=== PATIENT | female | born 1955 | race Caucasian/White ===

== ENCOUNTER 2016-06-28 12:00 | Emergency (ER) | payer OTHER ==
[2016-06-28 12:09] VITALS: BMI 36.6
--- NOTE | 2016-06-28 13:56 | PDOC ---
History of Present Illness - History of Present Illness Initial Comments: 06/28/16 14:24 The patient is a 61 year old female with a past medical hx of hypertension who presents to the ED complaining of right lower back pain radiating down her right leg for three days. She states the pain is also radiating to the suprapubic region. The patient states the pain has progressively gotten worse and describes the pain as hard. She states she has a hx of back pain and has gone to the ED in the past for the same symptoms. She denies any heavy lifting, trauma, or falls. The patient is also complaining of a wound to her left leg that she reports has been worsening. She states she has the wound as a result of her foot rubbing against her socks. The patient denies dysuria, hematuria The patient denies fever, chills The patient denies nausea, vomiting, diarrhea Allergies: NKDA Social: No toxic habits reported Surgical: None reported PCP: N/A <Mahi Talavera - Last Filed: 06/28/16 16:42> - General History Source: Patient Exam Limitations: No Limitations <Jaylene Allison - Last Filed: 06/28/16 16:53> <Pantera Olvera - Last Filed: 06/28/16 18:14> - General Chief Complaint: Wound Stated Complaint: LOWER BACK PAIN, LT ANKLE INJURY Time Seen by Provider: 06/28/16 13:48 Past History <Mahi Talavera - Last Filed: 06/28/16 16:42> - Past Medical History HTN: Yes Hypercholesterolemia: Yes - Immunization History Td Vaccination: No Immunization Up to Date: No - Psycho/Social/Smoking Cessation Hx Anxiety: No Suicidal Ideation: No Smoking Status: No Smoking History: Never smoked Number of Cigarettes Smoked Daily: 0 Hx Alcohol Use: No Drug/Substance Use Hx: No Substance Use Type: None <Jaylene Allison - Last Filed: 06/28/16 16:53> <Pantera Olvera - Last Filed: 06/28/16 18:14> - Past Medical History Allergies/Adverse Reactions: Allergies Allergy/AdvReac Type Severity Reaction Status Date / Time No Known Allergies Allergy Verified 06/28/16 14:52 Home Medications: Ambulatory Orders Aspirin [Baby Aspirin] 81 mg PO DAILY 10/10/11 Hydrochlorothiazide [Hctz -] 50 mg PO DAILY 05/10/14 Cyclobenzaprine HCl [Flexeril -] 10 mg PO TID #21 tablet 08/22/15 Cephalexin [Keflex] 500 mg PO Q6H #28 capsule 06/28/16 Ibuprofen [Motrin -] 600 mg PO TID PRN #21 tablet 06/28/16 Methocarbamol [Robaxin -] 500 mg PO TID PRN #21 tablet 06/28/16 Oxycodone HCl/Acetaminophen [Percocet 5-325 mg Tablet] 1 tab PO Q6H PRN #12 tablet MDD 4 06/28/16 Review of Systems - Review of Systems Able to Perform ROS?: Yes Comments:: 06/28/16 14:24 GENERAL/CONSTITUTIONAL: No: fever, chills, weakness, loss of appetite. HEAD, EYES, EARS, NOSE AND THROAT: No: change in vision, ear pain, discharge, sore throat, throat swelling. CARDIOVASCULAR: No: chest pain, lightheadedness, palpitations, syncope RESPIRATORY: No: cough, shortness of breath, wheezing, hemoptysis, stridor. GASTROINTESTINAL: No: nausea, vomiting, abdominal cramping, diarrhea, rectal bleeding, constipation. GENITOURINARY: No: dysuria, hematuria, frequency, urgency, flank pain. MUSCULOSKELETAL: +Lower back pain radiating into right leg and suprapubic region. SKIN: No: +Left foot wound. No: lesions. NEUROLOGIC: No: headache, vertigo, paresthesias, weakness ENDOCRINE: No: unexplained weight gain or loss HEMATOLOGIC/LYMPHATIC: No: anemia, easy bleeding, swelling nodes <Mahi Talavera - Last Filed: 06/28/16 16:42> *Physical Exam - Vital Signs Last Vital Signs Temp Pulse Resp BP Pulse Ox 98.1 F 80 20 137/79 98 06/28/16 12:05 06/28/16 12:05 06/28/16 12:05 06/28/16 12:05 06/28/16 12:05 - Physical Exam Comments: 06/28/16 14:28 GENERAL: The patient is in no acute distress. HEAD: Normal with no signs of trauma. EYES: PERRLA, EOMI, sclera anicteric, conjunctiva clear. ENT: Ears normal, nares patent, oropharynx clear without exudates. Moist mucous membranes. NECK: Normal range of motion, supple without lymphadenopathy, JVD, or masses. LUNGS: Breath sounds equal, clear to auscultation bilaterally. No wheezes, and no crackles. HEART:Regular rate and rhythm, normal S1 and S2 without murmur, rub or gallop. ABDOMEN: Soft, nontender, normoactive bowel sounds. No guarding, no rebound. EXTREMITIES: Normal range of motion, no edema. No clubbing or cyanosis. No erythema, or tenderness. NEUROLOGICAL: Cranial nerves II through XII grossly intact. Normal speech. No focal neurological deficits. MUSCULOSKELETAL: +Right CVA tenderness, right straight leg test positive. SKIN: + Left medial foot venous stasis changes, two scabs. <Mahi Talavera - Last Filed: 06/28/16 16:42> - Vital Signs Last Vital Signs Temp Pulse Resp BP Pulse Ox 98.1 F 80 20 137/79 98 06/28/16 12:05 06/28/16 12:05 06/28/16 12:05 06/28/16 12:05 06/28/16 12:05 <Jaylene Allison - Last Filed: 06/28/16 16:53> - Vital Signs Last Vital Signs Temp Pulse Resp BP Pulse Ox 98.1 F 80 20 137/79 98 06/28/16 12:05 06/28/16 12:05 06/28/16 12:05 06/28/16 12:05 06/28/16 12:05 <Pantera Olvera - Last Filed: 06/28/16 18:14> ED Treatment Course - LABORATORY CBC & Chemistry Diagram: 06/28/16 14:36 06/28/16 14:36 - RADIOLOGY Radiograph Interpretation: 06/28/16 16:43 CT Abd/Pelv Impression: No evidence of current urolithiasis or obstructive uropathy. A 7 cm right renal cortical cyst is noted which previously measured 6 cm in diameter on a prior CT study of 10/10/2011 No free intraperitoneal fluid or pneumoperitoneum. Interval development of several mildly prominent right lower quadrant mesenteric lymph nodes is seen. Correlation with 3 month follow-up CT is suggested to document stability. Reported By: Osman Barron MD 06/28/16 1482 <Mahi Talavera - Last Filed: 06/28/16 16:42> - LABORATORY CBC & Chemistry Diagram: 06/28/16 14:36 06/28/16 14:36 <Jaylene Allison - Last Filed: 06/28/16 16:53> - LABORATORY CBC & Chemistry Diagram: 06/28/16 14:36 06/28/16 14:36 - ADDITIONAL ORDERS Additional order review: Laboratory Results 06/28/16 06/28/16 14:36 14:36 Sodium 141 Potassium 5.9 H D Chloride 100 Carbon Dioxide 29 Anion Gap 12 BUN 15 Creatinine 0.8 D Random Glucose 87 Calcium 9.4 Urine Color Dkyellow Urine Appearance Slcloudy Urine pH 5.0 D Ur Specific [place] 1.021 Urine Protein Negative Urine Glucose (UA) Negative Urine Ketones Trace H Urine Blood Negative Urine Nitrite Negative Urine Bilirubin Negative Urine Urobilinogen Negative Ur Leukocyte Esterase Negative 06/28/16 14:36 RBC 5.41 H MCV 86.1 MCHC 33.4 RDW 14.3 MPV 7.5 Neutrophils % 70.2 D Lymphocytes % 17.3 D Monocytes % 10.4 H Eosinophils % 1.8 Basophils % 0.3 - Medications Given in the ED: ED Medications Discontinued Medications Generic Name Dose Route Start Last Admin Trade Name Freq PRN Reason Stop Dose Admin Ketorolac Tromethamine 30 mg 06/28/16 14:20 06/28/16 14:47 Toradol Injection - IVPUSH 06/28/16 14:21 30 mg ONCE ONE Administration Methocarbamol 500 mg 06/28/16 14:20 06/28/16 14:47 Robaxin - PO 06/28/16 14:21 500 mg ONCE ONE Administration <Pantera Olvera - Last Filed: 06/28/16 18:14> Medical Decision Making - Medical Decision Making 06/28/16 13:55 A portion of this note was documented by scribe services under my direction. I have reviewed the details of the note, within reason, and agree with the documentation with the following case summary and management plan written by me. Nursing documentation reviewed and incorporated into medical decision making this is a 61 yo F who presents to the Er with a complaint of right sided back/ flank pain No fevers or chills No hematuria No trauma No heavy lifting Pt has had these symptoms in the past but they resolved on examination Pain is located in the Right SI joint and Right flank No skin changes Pain with lifting right leg Left medial leg venous stasis changes 2 scabs noted Pt has no local erythma Pt is very sensitive No expressible purulence 06/28/16 16:23 Laboratory Tests 06/28/16 06/28/16 06/28/16 14:36 14:36 14:36 WBC 6.1 Hgb 15.6 H D Hct 46.6 H Plt Count 232 MPV 7.5 Sodium 141 Potassium 5.9 H D Chloride 100 Carbon Dioxide 29 BUN 15 Creatinine 0.8 D Random Glucose 87 Urine Blood Negative Urine Nitrite Negative Ur Leukocyte Esterase Negative Will: Spiral CT - r/o stone Will give pain medications to manage musculoskeletal pain Will give abx for left foot pain 06/28/16 16:27 06/28/16 16:29 <Jaylene Allison - Last Filed: 06/28/16 16:53> - Medical Decision Making 06/28/16 18:14 XR foot unremarkable. Pt discharged in stable condition <Pantera Olvera - Last Filed: 06/28/16 18:14> *DC/Admit/Observation/Transfer - Attestations Scribe Attestion: 06/28/16 14:25 Documentation prepared by Mahi Talavera, acting as director of medical education for Jaylene Allison MD/. <Mahi Talavera - Last Filed: 06/28/16 16:42> - Discharge Dispostion Admit: No <Jaylene Allison - Last Filed: 06/28/16 16:53> <Pantera Olvera - Last Filed: 06/28/16 18:14> Diagnosis at time of Disposition: Nonhealing ulcer of left lower extremity, Acute sciatica Pain in lower back Qualifiers: Chronicity: chronic Back pain laterality: right Sciatica presence: with sciatica Sciatica laterality: sciatica of right side Qualified Code(s): M54.41 - Lumbago with sciatica, right side - Discharge Dispostion Disposition: HOME Condition at time of disposition: Stable - Prescriptions Prescriptions: Cephalexin [Keflex] 500 mg PO Q6H #28 capsule Ibuprofen [Motrin -] 600 mg PO TID PRN #21 tablet PRN Reason: Pain Oxycodone HCl/Acetaminophen [Percocet 5-325 mg Tablet] 1 tab PO Q6H PRN #12 tablet MDD 4 PRN Reason: Severe Pain Methocarbamol [Robaxin -] 500 mg PO TID PRN #21 tablet PRN Reason: Pain - Patient Instructions Printed Discharge Instructions: DI for Back Spasm, DI for Low Back Pain Additional Instructions: Tyra Thank you for coming in to the ER today Please try the medications prescribed for your pain Please also follow up with your primary care physician within 1 week for re evaluation Return to the ER for any other concerns or complaints
[2016-06-28] MEDS ORDERED: KETOROLAC TROMETHAMINE 30 MG/1 ML VIAL IVPUSH ONE (14:20)
[2016-06-28] MEDS ORDERED: METHOCARBAMOL 500 MG TABLET PO ONE (14:20)
[2016-06-28] MEDS ORDERED: METHOCARBAMOL 500 MG TABLET ONE (14:39)
[2016-06-28] MEDS ORDERED: KETOROLAC TROMETHAMINE 30 MG/1 ML VIAL ONE (14:39)
[2016-06-28 14:57] LABS: BASOPHIL 0.3 % (0-2.0); EOSINOPHIL 1.8 % (0-4.5); MCH 28.8 pg (25.7-33.7); MCHC 33.4 g/dl (32.0-36.0); MEAN CELL VOLUME 86.1 fl (80-96); MEAN PLT VOLUME 7.5 fl (7.5-11.1); NEUTROPHILS 70.2 % (42.8-82.8); PLATELET COUNT 232 K/MM3 (134-434); RDW 14.3 % (11.6-15.6); WHITE BLOOD COUNT 6.1 K/mm3 (4.0-10.0)
[2016-06-28 15:21] LABS: URINE APPEARANCE SLCLOUDY; URINE BILIRUBIN NEGATIVE (NEGATIVE); URINE BLOOD NEGATIVE (NEGATIVE); URINE COLOR DKYELLOW; URINE GLUCOSE (UA) NEGATIVE (NEGATIVE); URINE KETONE TRACE (NEGATIVE); URINE LEUK ESTERASE NEGATIVE (NEGATIVE); URINE NITRITE NEGATIVE (NEGATIVE); URINE PROTEIN NEGATIVE (NEGATIVE); URINE UROBILINOGEN NEGATIVE E.U./dl (0.2-1.0)
[2016-06-28 15:24] LABS: CALCIUM 9.4 mg/dL (8.5-10.1); CREATININE 0.8 mg/dL (0.55-1.02)
[2016-06-28 18:31] VITALS: BP 109/78; PULSE 78; TEMP 98.4
== END 2016-06-28 18:32 | disposition home or self-care (01) ==
LOC: JER 12:00
PROC: 3E0333Z Introduction of Anti-inflammatory into Peripheral Vein, Percutaneous Approach (ICD-10-PCS; principal; 2016-06-28)
DX: M54.41 Lumbago with sciatica, right side (principal); L97.821 Non-pressure chronic ulcer of other part of left lower leg limited to breakdown of skin
CPT/HCPCS: 36415; 73630-TC-LT; 74176; 80048; 81003; 85025; 87086; 96374; 99285-25

== ENCOUNTER 2017-07-02 18:33 | Emergency (ER) | payer SELFPAY ==
[2017-07-02 18:46] VITALS: BP 144/76; PULSE 71; TEMP 97.9; BMI 40.2
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
[2017-07-02] MEDS ORDERED: KETOROLAC TROMETHAMINE 60 MG/2 ML VIAL IM ONE (19:27)
[2017-07-02] MEDS ORDERED: CYCLOBENZAPRINE HCL 5 MG TABLET PO STA (19:29)
[2017-07-02] MEDS ORDERED: KETOROLAC TROMETHAMINE 60 MG/2 ML VIAL ONE (19:30)
[2017-07-02] MEDS ORDERED: CYCLOBENZAPRINE HCL 10 MG TABLET (FP) ONE (19:31)
== END 2017-07-02 19:46 | disposition home or self-care (01) ==
LOC: FER 18:33
PROC: 3E0233Z Introduction of Anti-inflammatory into Muscle, Percutaneous Approach (ICD-10-PCS; principal; 2017-07-02)
DX: M54.41 Lumbago with sciatica, right side (principal); I10 Essential (primary) hypertension; E78.00 Pure hypercholesterolemia, unspecified; G89.29 Other chronic pain
CPT/HCPCS: 99282-25

== ENCOUNTER 2018-03-06 12:15 | Emergency (ER) | payer OTHER ==
[2018-03-06 12:43] VITALS: BP 170/84; PULSE 77; TEMP 98.6; BMI 37.3
[2018-03-06] MEDS ORDERED: KETOROLAC TROMETHAMINE 30 MG/1 ML VIAL IM ONE (13:25)
[2018-03-06] MEDS ORDERED: KETOROLAC TROMETHAMINE 30 MG/1 ML VIAL ONE (13:27)
--- NOTE | 2018-03-06 13:44 | PDOC ---
History of Present Illness - General Chief Complaint: Pain, Acute Stated Complaint: PAIN Time Seen by Provider: 03/06/18 12:59 History Source: Patient - History of Present Illness Occurred: reports: other Severity: reports: severe Pain Location: reports: back Past History - Past Medical History Allergies/Adverse Reactions: Allergies Allergy/AdvReac Type Severity Reaction Status Date / Time No Known Allergies Allergy Verified 03/06/18 12:41 Home Medications: Ambulatory Orders Ibuprofen [Motrin -] 600 mg PO TID PRN #21 tablet 06/28/16 Cyclobenzaprine HCl [Flexeril 10 mg] 10 mg PO BID #14 tablet 07/02/17 Naproxen [EC-Naprosyn 375 MG] 375 mg PO BID #14 tab 07/02/17 Acetaminophen 1,000 mg PO Q6H #30 tablet 03/06/18 Cyclobenzaprine HCl [Flexeril 10 mg] 10 mg PO TID PRN #9 tablet 03/06/18 COPD: No HTN: Yes Hypercholesterolemia: Yes - Immunization History Td Vaccination: No Immunization Up to Date: No - Suicide/Smoking/Psychosocial Hx Smoking Status: No Smoking History: Never smoked Have you smoked in the past 12 months: No Number of Cigarettes Smoked Daily: 0 Hx Alcohol Use: No Drug/Substance Use Hx: No Substance Use Type: None Trauma Specific PMHX - Complaint Specific PMHX Arthritis: No Back Injury: No Neck Injury: No Hx Sacro Iliac Joint Dysfunction: No Review of Systems - Review of Systems Constitutional: No: Chills, Fever ABD/GI: No: Nausea, Vomiting, Abdominal cramping : No: Burning, Dysuria, Flank Pain, Hematuria Musculoskeletal: Yes: Back Pain Neurological: No: Numbness, Tingling, Weakness *Physical Exam - Vital Signs Last Vital Signs Temp Pulse Resp BP Pulse Ox 98.6 F 77 22 H 170/84 98 03/06/18 12:41 03/06/18 12:41 03/06/18 12:41 03/06/18 12:41 03/06/18 12:41 - Physical Exam General Appearance: Yes: Appropriately Dressed, Mild Distress HEENT: positive: Normal Voice Neck: positive: Supple Respiratory/Chest: negative: Respiratory Distress Gastrointestinal/Abdominal: positive: Normal Bowel Sounds, Soft. negative: Tender, Pulsatile Mass, Distended, Guarding, Rebound Musculoskeletal: negative: CVA Tenderness Extremity: positive: Normal Inspection. negative: Tender Integumentary: positive: Dry, Warm Neurologic: positive: Fully Oriented, Alert, Normal Mood/Affect ED Treatment Course - Medications Given in the ED: ED Medications Discontinued Medications Generic Name Dose Route Start Last Admin Trade Name Mara PRN Reason Stop Dose Admin Ketorolac Tromethamine 30 mg 03/06/18 13:25 03/06/18 13:31 Toradol Injection - IM 03/06/18 13:26 30 mg ONCE ONE Administration Medical Decision Making - Medical Decision Making 03/06/18 13:32 62-year-old female, history of hypertension, hyperlipidemia, multiple ED visits for chronic back pain, usually affecting right lower back per patient, ?sciatica , no recent spinal imaging, here with left gluteal pain radiating to left leg that patient states has been going on for a long time, but worsening over the past 5 days. Taking motrin w/ no relief. Now ambulating with cane. No recent trauma. No sensory changes, lower extremity weakness, bowel or bladder incontinence or saddle anesthesia. Denies any symptoms, nausea, vomiting, fever or chills See exam Chronic LBP No red flags at thim time, i.e cauda equina, infxn, no trauma -dose of toradol in ER -dc w/ pain control and PMD f/u 03/06/18 13:50 *DC/Admit/Observation/Transfer Diagnosis at time of Disposition: Chronic back pain Qualifiers: Back pain location: low back pain Back pain laterality: left Sciatica presence : without sciatica Qualified Code(s): M54.5 - Low back pain; G89.29 - Other chronic pain - Discharge Dispostion Disposition: HOME Condition at time of disposition: Good - Prescriptions Prescriptions: Acetaminophen 1,000 mg PO Q6H #30 tablet Cyclobenzaprine HCl [Flexeril 10 mg] 10 mg PO TID PRN #9 tablet PRN Reason: Back Pain - Referrals - Patient Instructions Printed Discharge Instructions: DI for Low Back Pain Additional Instructions: Take medication as directed and follow up with your PMD - Post Discharge Activity
== END 2018-03-06 13:52 | disposition home or self-care (01) ==
LOC: JERFT 12:15
PROC: 3E0233Z Introduction of Anti-inflammatory into Muscle, Percutaneous Approach (ICD-10-PCS; principal; 2018-03-06)
DX: M54.5 Low back pain (principal); G89.29 Other chronic pain
CPT/HCPCS: 96372; 99281-25

== ENCOUNTER 2018-12-18 22:36 | Emergency (ER) | payer OTHER ==
[2018-12-18 22:51] VITALS: BMI 36.6
[2018-12-18] MEDS ORDERED: SODIUM CHLORIDE 0.9% 500 ML INFUS.BAG IV ONE (23:48)
[2018-12-18] MEDS ORDERED: ONDANSETRON 4 MG TABLET PO PRN (23:48)
--- NOTE | 2018-12-19 00:02 | PDOC ---
History of Present Illness - General Chief Complaint: Pain, Acute Stated Complaint: ABDOMINAL PAIN, VOMITING Time Seen by Provider: 12/18/18 23:25 - History of Present Illness Initial Comments: 12/18/18 23:56 63yo F hx HTN, HLD, chronic LBP, and recent hysterectomy and colpocleisis perineoplasty present c/o acute abdominal pain x3hrs. Pt had hysterectomy vaginal BSO and colpocleisis perineoplasty cystoscopy at [facility] 3 days ago on December 15. Her post-op visit is scheduled for December [address] Vázquez at . Pt was doing well since the surgery with only some minor vaginal bleeding, which the surgeons told her was normal. Then 3 hours ago pt had acute onset of pressure type 8/10 pain in her lower and upper abdomen, intermittent, better when lying on her side. Endorse subjective fever, chills, nausea, vomiting that sometimes appears like coffee grounds, b/l flank pain, possible blood in urine or from vagina. Denies CP, SOB, dysuria, D/C, numbness, tingling , weakness, headache, sick contacts, recent travel, trauma, vaginal discharge or odor. Per nurse, EMS said there was one small streak of blood in the vomit, but no coffee grounds. Past History - Past Medical History Allergies/Adverse Reactions: Allergies Allergy/AdvReac Type Severity Reaction Status Date / Time No Known Allergies Allergy Verified 12/18/18 22:49 Home Medications: Ambulatory Orders Acetaminophen 1,000 mg PO Q6H #30 tablet 03/06/18 Aspirin [Aspirin EC] 81 mg PO DAILY 12/19/18 Docusate Sodium [Colace] 100 mg PO DAILY 12/19/18 Hydrochlorothiazide [Hctz -] 25 mg PO DAILY 12/19/18 Ibuprofen [Motrin -] 600 mg PO PRN PRN 12/19/18 COPD: No HTN: Yes Hypercholesterolemia: Yes - Immunization History Td Vaccination: No Immunization Up to Date: No - Suicide/Smoking/Psychosocial Hx Smoking Status: No Smoking History: Never smoked Have you smoked in the past 12 months: No Number of Cigarettes Smoked Daily: 0 Information on smoking cessation initiated: No Hx Alcohol Use: No Drug/Substance Use Hx: No Substance Use Type: None Review of Systems - Review of Systems Comments:: 12/19/18 01:44 Constitutional: Positive for chills, fever, fatigue. HENT: Negative for sore throat, rhinorrhea, congestion. Eyes: Negative for visual disturbance. Respiratory: Negative for shortness of breath, cough, and wheezing. Cardiovascular: Negative for chest pain, palpitations, and leg swelling. Gastrointestinal: Positive for abdominal pain, nausea, and vomiting. Negative for blood in stool, constipation, diarrhea, . Genitourinary: Positive for flank pain and hematuria. Negative for dysuria. Musculoskeletal: Positive for back pain. Negative for myalgias and neck pain. Skin: Negative for rash. Neurological: Negative for light-headedness, dizziness, syncope, weakness, numbness and headaches. Psychiatric/Behavioral: Negative for behavioral problems and confusion. *Physical Exam - Vital Signs Last Vital Signs Temp Pulse Resp BP Pulse Ox 98.5 F 80 18 155/74 91 L 12/18/18 22:49 12/18/18 22:49 12/18/18 22:49 12/18/18 22:49 12/18/18 22:49 - Physical Exam Comments: 12/19/18 01:46 Gen: Alert, NAD, uncomfortable-appearing, lying on side. HEENT: PERRL, EOMI, MMM, NCAT. No conjunctival pallor. Sclera are non-icteric. Oropharynx is clear. CV: Regular rate and rhythm. No murmurs, rubs, or gallops. PULM: No resp distress. CTAB, no wheezes, rales, or rhonchi. ABD: TTP epigastric and suprapubic, b/l CVA tenderness, soft, ND, no rebound tenderness or guarding. BACK: No TTP of c/t/l-spine. No step-offs or deformities. MSK: No bony deformities. 2+ pulses in all extremities. NEURO: AAOx3. PERRL. No gross CN deficits. Strength and sensation grossly intact throughout. EXTREMITIES: No cyanosis. No clubbing. No edema. No calf tenderness. PSYCH: Normal mood and thought pattern. SKIN: Warm and dry. Normal capillary refill. No rashes. No jaundice. Heart Score/ECG Review - ECG Impressions Comment:: 12/19/18 01:43 NSR, 78bpm, normal axis, no JARRETT/TWI ED Treatment Course - LABORATORY CBC & Chemistry Diagram: 12/19/18 00:11 12/19/18 00:11 Medical Decision Making - Medical Decision Making 12/19/18 00:43 63yo F hx HTN, HLD, chronic LBP, and recent hysterectomy and colpocleisis perineoplasty present with acute epigastric and suprapubic abdominal pain, N/V, b/l flank pain, and fever x3hrs. Pt had hysterectomy vaginal BSO and colpocleisis perineoplasty cystoscopy at [facility] 3 days ago. Abdomen not surgical; pt hemodynamically stable. Concern for post-op complications such as infection, abscess, bleeding, or pneumoperitoneum - assess with abdominal labs, upright CXR, and possible CTAP. Call Dr. Vázquez for additional information on surgery and reason for surgery. Consider [id number] GI etiologies such as UTI, nephrolithiasis, cholelithiasis, SBO, mesenteric ischemia, pancreatitis , gastroenteritis, etc - assess with labs and imaging. -Meds: Pantoprazole, Zofran, 1L NS -EKG -Labs: CBC, CMP, Cardiac profile, Lipase, UA -Upright CXR -Call Dr. Vázquez [phone] for additional info -Pending call, examine vagina and consider CTAP 12/19/18 01:29 -UA: 4+ ketones, 1+ protein, trace blood, no signs of infection. -Labs: WBC 13.5. No other concerning findings. -Pt to XR. -On-call doc had no info on pt. Called [facility] transfer center who informed us the surgery was for uterine prolapse. Uncomplicated recovery. Agree with plan for CTAP w/IV contrast and will accept transfer if indicated. -CTAP ordered 12/19/18 02:[address] GHOSH. Pending CT and limited vaginal exam, dispo transfer vs d/c. *DC/Admit/Observation/Transfer Diagnosis at time of Disposition: SBO (small bowel obstruction) - Discharge Dispostion Disposition: TRANSFER ACUTE CARE/OTHER HOSP - Referrals - Patient Instructions - Post Discharge Activity
[2018-12-19] MEDS ORDERED: ONDANSETRON 4 MG/2 ML VIAL IVPUSH ONE (00:04)
[2018-12-19] MEDS ORDERED: PANTOPRAZOLE SODIUM 40 MG VIAL IVPUSH ONE (00:09)
[2018-12-19] MEDS ORDERED: PANTOPRAZOLE SODIUM 40 MG/100 ML BAG IVPB ONE (00:13)
[2018-12-19] MEDS ORDERED: ONDANSETRON 4 MG/2 ML VIAL ONE (00:13)
[2018-12-19 00:19] LABS: BASO % 0.4 % (0-2.0); EOS % 0.4 % (0-4.5); HEMATOCRIT 46.3 % (32.4-45.2); HEMOGLOBIN 15.2 GM/dL (10.7-15.3); LYMPH % 9.2 % (8-40); MCH 28.6 pg (25.7-33.7); MCHC 32.9 g/dl (32.0-36.0); MEAN PLT VOLUME 7.8 fl (7.5-11.1); MONO % 4.6 % (3.8-10.2); NEUT % 85.4 % (42.8-82.8); PLATELET COUNT 296 K/MM3 (134-434); RBC 5.32 M/mm3 (3.60-5.2); RDW 13.9 % (11.6-15.6); WHITE BLOOD COUNT 13.5 K/mm3 (4.0-10.0)
[2018-12-19 00:25] LABS: EPI CELLS 0.8 /HPF (0-5/HPF); HYALINE CASTS 3 /lpf (0-8); URINE APPEARANCE CLEAR; URINE BACTERIA 5.9 /hpf (NEGATIVE); URINE BILIRUBIN NEGATIVE (NEGATIVE); URINE COLOR YELLOW; URINE GLUCOSE (UA) NEGATIVE (NEGATIVE); URINE KETONE 4+ (NEGATIVE); URINE LEUK ESTERASE NEGATIVE (NEGATIVE); URINE NITRITE NEGATIVE (NEGATIVE); URINE PROTEIN 1+ (NEGATIVE); URINE RBC 11 /hpf (0-4); URINE WBC 3 /hpf (0-5)
[2018-12-19 00:46] LABS: INR 0.97 (0.83-1.09); PROTHROMBIN TIME (PATIENT) 11.5 SEC (9.7-13.0)
[2018-12-19 00:49] LABS: ACTIVATED PTT 29.8 SECONDS (25.2-36.5)
[2018-12-19 01:00] LABS: ALBUMIN 3.6 g/dl (3.4-5.0); ALK PHOS 94 U/L (45-117); ANION GAP 8 MMOL/L (8-16); BILIRUBIN,TOTAL 0.6 mg/dL (0.2-1); BLOOD UREA NITROGEN 19.2 mg/dL (7-18); CALCIUM 8.9 mg/dL (8.5-10.1); CHLORIDE 100 mmol/L (98-107); CO2 31 mmol/L (21-32); CREATININE 0.7 mg/dL (0.55-1.3); GLUCOSE,RANDOM 148 mg/dL (74-106); LIPASE 195 U/L (73-393); POTASSIUM 3.5 mmol/L (3.5-5.1); SGOT/AST 38 U/L (15-37); SGPT/ALT 54 U/L (13-61); SODIUM 139 mmol/L (136-145); TOT PROT 7.8 g/dl (6.4-8.2)
--- NOTE | 2018-12-19 02:21 | PDOC ---
*Physical Exam - Vital Signs Last Vital Signs Temp Pulse Resp BP Pulse Ox 98.5 F 76 20 123/60 97 12/18/18 22:49 12/19/18 00:38 12/19/18 00:37 12/19/18 00:37 12/19/18 00:38 - Physical Exam General Appearance: Yes: Nourished, Appropriately Dressed, Obese. No: Apparent Distress HEENT: positive: Normal Voice, Symmetrical Neck: positive: Trachea midline, Supple Respiratory/Chest: positive: Lungs Clear, Normal Breath Sounds. negative: Chest Tender, Respiratory Distress Cardiovascular: positive: Regular Rhythm, Regular Rate. negative: Murmur Gastrointestinal/Abdominal: positive: Normal Bowel Sounds, Tender (Bilateral tenderness to UQ on palpation.), Soft. negative: Organomegaly Musculoskeletal: positive: Normal Inspection. negative: CVA Tenderness Extremity: positive: Normal Capillary Refill, Normal Inspection, Normal Range of Motion. negative: Tender Integumentary: positive: Normal Color, Dry, Warm, Bruising Neurologic: positive: Fully Oriented, Alert, Normal Mood/Affect, Normal Response ED Treatment Course - LABORATORY CBC & Chemistry Diagram: 12/19/18 00:11 12/19/18 00:11 - ADDITIONAL ORDERS Additional order review: Laboratory Results 12/19/18 12/19/18 12/19/18 00:11 00:11 00:11 PT with INR 11.50 INR 0.97 PTT (Actin FS) 29.8 Sodium 139 Potassium 3.5 Chloride 100 Carbon Dioxide 31 Anion Gap 8 BUN 19.2 H Creatinine 0.7 Est GFR (CKD-EPI)AfAm 106.87 Est GFR (CKD-EPI)NonAf 92.21 Random Glucose 148 H Calcium 8.9 Total Bilirubin 0.6 AST 38 H ALT 54 Alkaline Phosphatase 94 Creatine Kinase 74 Troponin I < 0.02 Total Protein 7.8 Albumin 3.6 Lipase 195 Urine Color Yellow Urine Appearance Clear Urine pH 7.0 D Ur Specific [place] 1.024 Urine Protein 1+ H Urine Glucose (UA) Negative Urine Ketones 4+ H Urine Blood Trace Urine Nitrite Negative Urine Bilirubin Negative Urine Urobilinogen 1.0 Ur Leukocyte Esterase Negative Urine WBC (Auto) 3 Urine RBC (Auto) 11 Urine Casts (Auto) 3 U Epithel Cells (Auto) 0.8 Urine Bacteria (Auto) 5.9 12/19/18 00:11 RBC 5.32 H MCV 87.0 MCHC 32.9 RDW 13.9 MPV 7.8 Neutrophils % 85.4 H D Lymphocytes % 9.2 D Monocytes % 4.6 Eosinophils % 0.4 Basophils % 0.4 - Medications Given in the ED: ED Medications Discontinued Medications Generic Name Dose Route Start Last Admin Trade Name Freq PRN Reason Stop Dose Admin Ondansetron HCl 4 mg 12/19/18 00:04 12/19/18 00:05 Zofran Injection IVPUSH 12/19/18 00:05 4 mg NOW ONE Administration Pantoprazole Sodium 40 mg 12/19/18 00:09 12/19/18 00:15 Protonix Iv IVPUSH 12/19/18 00:10 40 mg ONCE ONE Administration Sodium Chloride 1,000 ml 12/18/18 23:48 12/19/18 00:10 Normal Saline - IV 12/18/18 23:49 1,000 ml ONCE ONE Administration Medical Decision Making - Medical Decision Making 12/19/18 02:19 Abd pain fever vomiting 3 day after recon surgery for uterine prolapse at [facility]. Talked to transfer center [facility], if concerning findings will transfer back to [facility] for further post-op surgery care. CXR negative for pneumoperitoneum. Getting CT abd for evaluation of post-op pain. 12/19/18 04:16 CT abd shows small SBO. Will tx to [facility] for post-op care. 12/19/18 05:14 ED to ED transfer to [facility] under care of Dr. Sánchez. *DC/Admit/Observation/Transfer Diagnosis at time of Disposition: SBO (small bowel obstruction) - Discharge Dispostion Disposition: TRANSFER ACUTE CARE/OTHER HOSP - Referrals - Patient Instructions - Post Discharge Activity
--- NOTE | 2018-12-19 03:23 | PDOC ---
Documentation entered by Jose Menendez SCRIBE, acting as scribe for Laurie Luna MD. Laurie Luna MD: This documentation has been prepared by the heike, Jose Menendez SCRIBE, under my direction and personally reviewed by me in its entirety. I confirm that the documentation accurately reflects all work, treatment, procedures, and medical decision making performed by me. Attending Attestation - Resident Resident Name: Sandy Mcmillan - ED Attending Attestation I have performed the following: I have examined & evaluated the patient, The case was reviewed & discussed with the resident, I agree w/resident's findings & plan, Exceptions are as noted - HPI HPI: 12/19/18 01:39 The patient is a 63 year old female with a significant past medical history of hypertension, hyperlipidemia, uterine prolapse s/p vaginal hysterectomy, BSO and colpocleisis perineoplasty cystoscopy on 12/15/18 (Ana María, Dr. Vázquez) BIBEMS to the emergency department with an acute onset of abdominal pain since this evening. Pt states the pain was 8/10, located in her epigastric area and suprapubic area. She reports associated subjective fever, chills, nausea, and NBNB emesis x5. Pt's daughter called 911 and requested [facility] given recent surgery but was brought here as it was closer. Per EMS, she had an episode of vomiting in EMS and there was a streak of red blood in the emesis. No coffee- ground emesis or shay hematemesis. Pt has felt well otherwise since she was discharged from [facility] on 12/16/18. She denies CP, SOB, headache, focal weakness/numbness, dysuria, hematuria, frequency, urgency. Denies trauma, vaginal discharge or odor. - Physicial Exam PE: 12/19/18 03:11 GENERAL: Awake, alert, and fully oriented, in no acute distress HEAD: No signs of trauma EYES: PERRLA, EOMI, sclera anicteric, conjunctiva clear ENT: Oropharynx clear without exudates. Dry MM NECK: Normal ROM, supple, no lymphadenopathy, JVD, or masses LUNGS: Breath sounds equal, clear to auscultation bilaterally. No wheezes, and no crackles HEART: Regular rate and rhythm, normal S1 and S2, no murmurs, rubs or gallops ABDOMEN: Soft, +epigastric ttp, normoactive bowel sounds. No guarding, no rebound. No masses : no active bleeding. No prolapse. Speculum exam deferred due to recent surgery (DI state nothing in vagina for 6 weeks) EXTREMITIES: Normal range of motion, no edema. No clubbing or cyanosis. + varicose veins, no erythema, or tenderness NEUROLOGICAL: Normal speech, cranial nerves intact, equal strength and sensation b/l SKIN: Warm, Dry, normal turgor, no rashes or lesions noted. - Medical Decision Making 12/19/18 00:13 63yo F recent [employer] surgery presnts to the ED with 2 hours of epigastric and suprapubic abd pain a/w 5 episodes of emesis Pt also had episode of emesis en route where she had streak of bright red blood in last episode of emesis Vitals with hypoxia on arrival, but on my evaluation O2 sat 98% on RA w/o intervention Exam with epigastric ttp DDx includes post op complication such as infection vs perforation vs SBO or gastroenterits or colitis or gastritis Streak of blood possibly jose e tomlinson tear after vomiting 6 times consecutively Plan to check labs, UA, obtain CTAP and discuss with urogynecologist team at [facility] 12/19/18 01:19 Labs with leukocytosis to 13.5 Case discussed with [employer] resident Dr. Mahajan at [facility] who confirms surgery was only for uterine prolapse She agrees with our plan thus far to obtain CTAP. We will call them back once CTAP is back Heart Score/ECG Review #1 12/19/18 03:22 Twelve-lead EKG was performed and reviewed by me. Normal sinus rhythm, rate 78. Normal axis. No ST elevations or T-wave inversions.
--- NOTE | 2018-12-19 04:56 | PDOC ---
*Physical Exam - Vital Signs Last Vital Signs Temp Pulse Resp BP Pulse Ox 98.9 F 72 20 126/66 100 12/19/18 04:00 12/19/18 04:00 12/19/18 04:00 12/19/18 04:00 12/19/18 04:00 ED Treatment Course - LABORATORY CBC & Chemistry Diagram: 12/19/18 00:11 12/19/18 00:11 - ADDITIONAL ORDERS Additional order review: Laboratory Results 12/19/18 12/19/18 12/19/18 00:11 00:11 00:11 PT with INR 11.50 INR 0.97 PTT (Actin FS) 29.8 Sodium 139 Potassium 3.5 Chloride 100 Carbon Dioxide 31 Anion Gap 8 BUN 19.2 H Creatinine 0.7 Est GFR (CKD-EPI)AfAm 106.87 Est GFR (CKD-EPI)NonAf 92.21 Random Glucose 148 H Calcium 8.9 Total Bilirubin 0.6 AST 38 H ALT 54 Alkaline Phosphatase 94 Creatine Kinase 74 Troponin I < 0.02 Total Protein 7.8 Albumin 3.6 Lipase 195 Urine Color Yellow Urine Appearance Clear Urine pH 7.0 D Ur Specific [place] 1.024 Urine Protein 1+ H Urine Glucose (UA) Negative Urine Ketones 4+ H Urine Blood Trace Urine Nitrite Negative Urine Bilirubin Negative Urine Urobilinogen 1.0 Ur Leukocyte Esterase Negative Urine WBC (Auto) 3 Urine RBC (Auto) 11 Urine Casts (Auto) 3 U Epithel Cells (Auto) 0.8 Urine Bacteria (Auto) 5.9 12/19/18 00:11 RBC 5.32 H MCV 87.0 MCHC 32.9 RDW 13.9 MPV 7.8 Neutrophils % 85.4 H D Lymphocytes % 9.2 D Monocytes % 4.6 Eosinophils % 0.4 Basophils % 0.4 - Medications Given in the ED: ED Medications Discontinued Medications Generic Name Dose Route Start Last Admin Trade Name Freq PRN Reason Stop Dose Admin Ondansetron HCl 4 mg 12/19/18 00:04 12/19/18 00:05 Zofran Injection IVPUSH 12/19/18 00:05 4 mg NOW ONE Administration Pantoprazole Sodium 40 mg 12/19/18 00:09 12/19/18 00:15 Protonix Iv IVPUSH 12/19/18 00:10 40 mg ONCE ONE Administration Sodium Chloride 1,000 ml 12/18/18 23:48 12/19/18 00:10 Normal Saline - IV 12/18/18 23:49 1,000 ml ONCE ONE Administration Medical Decision Making - Medical Decision Making 12/19/18 04:54 Sign out received from Dr. Luna at 2AM. 63 F with recent uterine prolapse surgery at [facility] 2 days ago, presenting today with N+V+abdominal pain. Prelim CT read shows low-grade SBO. Discussed with Dr. Stein, brusher machine resident at [facility], who requests ED-to-ED transfer. Pt accepted to [facility] ED by Dr. Sánchez. *DC/Admit/Observation/Transfer Diagnosis at time of Disposition: SBO (small bowel obstruction) - Discharge Dispostion Disposition: TRANSFER ACUTE CARE/OTHER HOSP - Referrals - Patient Instructions - Post Discharge Activity - Transfer to Acute Care Facility Receiving Facility: [facility] - Attestations Physician Attestion: 12/19/18 04:56 I, Dr. Iam Kellogg MD, attest that this document has been prepared under my direction and personally reviewed by me in its entirety. I further attest, that it accurately reflects all work, treatment, procedures and medical decision -making performed by me.
[2018-12-19 05:52] VITALS: BP 131/74; PULSE 76; TEMP 98.6
--- NOTE | 2018-12-20 11:25 | EKG ---
Test Reason : Blood Pressure : / mmHG Vent. Rate : 078 BPM Atrial Rate : 078 BPM P-R Int : 160 ms QRS Dur : 106 ms QT Int : 406 ms P-R-T Axes : 049 013 043 degrees QTc Int : 462 ms NORMAL SINUS RHYTHM INCOMPLETE RIGHT BUNDLE BRANCH BLOCK BORDERLINE ECG WHEN COMPARED WITH ECG OF 10-MAY-2014 03:53, NO SIGNIFICANT CHANGE WAS FOUND Confirmed by NYA VOSS MD ([id number]) on 12/20/2018 11:25:24 AM Referred By: Confirmed By:NYA VOSS MD
== END 2018-12-19 05:58 | disposition short-term general hospital (02) ==
LOC: JER 22:36
PROC: 3E033GC Introduction of Other Therapeutic Substance into Peripheral Vein, Percutaneous Approach (ICD-10-PCS; principal; 2018-12-18)
PROC: 3E033GC Introduction of Other Therapeutic Substance into Peripheral Vein, Percutaneous Approach (ICD-10-PCS; 2018-12-18)
DX: K91.30 Postprocedural intestinal obstruction, unspecified as to partial versus complete (principal); I10 Essential (primary) hypertension; E78.5 Hyperlipidemia, unspecified; M54.5 Low back pain; G89.29 Other chronic pain
CPT/HCPCS: 36415; 71046-TC-FY; 74177-TC; 80053; 81003; 82550; 83690; 84484; 85025; 85610; 85730; 87086; 87186; 93005; 93010; 96374; 96375; 99283-25

== ENCOUNTER 2019-01-03 09:56 | Emergency (ER) | payer OTHER ==
[2019-01-03 10:00] VITALS: BP 134/86; PULSE 74; TEMP 98; BMI 34.5
[2019-01-03] MEDS ORDERED: METHOCARBAMOL 500 MG TABLET PO ONE (10:45)
[2019-01-03] MEDS ORDERED: KETOROLAC TROMETHAMINE 30 MG/1 ML VIAL IM ONE (10:45)
[2019-01-03] MEDS ORDERED: KETOROLAC TROMETHAMINE 30 MG/1 ML VIAL ONE (10:47)
[2019-01-03] MEDS ORDERED: METHOCARBAMOL 500 MG TABLET ONE (10:48)
--- NOTE | 2019-01-03 10:52 | PDOC ---
History of Present Illness - General Chief Complaint: Head/Neck problem Stated Complaint: NECK PAIN Time Seen by Provider: 01/03/19 10:41 History Source: Patient Exam Limitations: Clinical Condition - History of Present Illness Initial Comments: 01/03/19 10:46 Patient with no significant past medical history present with complaint of 2 weeks history of bilateral neck pain which is worsening yesterday with increased pain to right side of posterior neck and neck stiffness. Patient reported taking Motrin was for pain. Denies any trauma or injury to neck. Reported increased pain to neck with rotation of the neck. Denies headache, nausea or vomiting. Denies dizziness, blurry vision or change in vision. Denies any other symptoms Timing/Duration: other (2 weeks) Past History - Past Medical History Allergies/Adverse Reactions: Allergies Allergy/AdvReac Type Severity Reaction Status Date / Time No Known Allergies Allergy Verified 12/18/18 22:49 Home Medications: Ambulatory Orders Acetaminophen 1,000 mg PO Q6H #30 tablet 03/06/18 Aspirin [Aspirin EC] 81 mg PO DAILY 12/19/18 Docusate Sodium [Colace] 100 mg PO DAILY 12/19/18 Hydrochlorothiazide [Hctz -] 25 mg PO DAILY 12/19/18 Ibuprofen [Motrin -] 600 mg PO PRN PRN 12/19/18 Methocarbamol [Robaxin -] 500 mg PO TID PRN #21 tablet 01/03/19 Naproxen 500 mg PO BID PRN #20 tablet 01/03/19 COPD: No HTN: Yes Hypercholesterolemia: Yes - Immunization History Td Vaccination: No Immunization Up to Date: No - Suicide/Smoking/Psychosocial Hx Smoking Status: No Smoking History: Never smoked Have you smoked in the past 12 months: No Number of Cigarettes Smoked Daily: 0 Hx Alcohol Use: No Drug/Substance Use Hx: No Substance Use Type: None Review of Systems - Review of Systems Able to Perform ROS?: Yes Is the patient limited Sinhala proficient: No Constitutional: No: Malaise, Weakness HEENTM: No: Symptoms Reported, Eye Pain, Blurred Vision, Recent change in vision , Double Vision Respiratory: No: Symptoms reported Cardiac (ROS): No: Symptoms Reported ABD/GI: No: Symptoms Reported, Nausea, Vomiting Musculoskeletal: Yes: Symptoms Reported, See HPI, Neck Pain (posterior neck pain ), Joint Stiffness (neck) Neurological: No: Headache, Tingling All Other Systems: Reviewed and Negative *Physical Exam - Vital Signs Last Vital Signs Temp Pulse Resp BP Pulse Ox 98.0 F 74 18 134/86 100 01/03/19 09:58 01/03/19 09:58 01/03/19 09:58 01/03/19 09:58 01/03/19 09:58 - Physical Exam Comments: 01/03/19 10:50 GENERAL: Well developed, well nourished. Awake and alert in moderate acute distress. CARDIOVASCULAR: Regular rate and rhythm. No murmurs, rubs, or gallops. PULMONARY: No evidence of respiratory distress. MUSCULOSKELETAL : Moderate tenderness to posterior paracervical muscle C2-C7 the right side with mild tenderness to left side. Restricted neck movement drainage or pain. Bony deformities SKIN: Warm and dry. Normal capillary refill. NEUROLOGICAL: Alert, awake, appropriate. No motor deficits in the lower extremities. Gait is normal without ataxia. PSYCHIATRIC: Cooperative. Good eye contact. Appropriate mood and affect. General Appearance: Yes: Nourished, Appropriately Dressed, Moderate Distress ED Treatment Course - RADIOLOGY Radiology Studies Ordered: Category Date Time Status SPINE-CERVICAL [RAD] Stat Radiology 01/03/19 10:45 Ordered Medical Decision Making - Medical Decision Making 01/03/19 10:47 Patient with no significant past medical history present with complaint of 2 weeks history of bilateral neck pain which is worsening yesterday with increased pain to right side of posterior neck and neck stiffness. Patient reported taking Motrin was for pain. Denies any trauma or injury to neck. Reported increased pain to neck with rotation of the neck. Denies headache, nausea or vomiting. Denies dizziness, blurry vision or change in vision. Denies any other symptoms Exam significant for moderate tenderness to right paracervical muscle C2-C7 and mild tenderness to left paracervical muscle. Decreased neck movement due to pain. Symptoms likely neck spasm versus less likely neck or fracture pathology. Toradol 30 mg IM and Robaxin 500 mg by mouth ordered for pain and spasm. X-ray of cervical spine ordered to rule out acute pathology 01/03/19 11:34 X-ray of cervical spine shows no acute pathology except straightening of the spine consistent with spasm. Patient symptoms likely torticollis. Patient be discharged on naproxen and Robaxin when necessary for pain and spasm with orthopedist spine follow-up as needed *DC/Admit/Observation/Transfer Diagnosis at time of Disposition: Torticollis, Neck muscle spasm - Discharge Dispostion Disposition: HOME Condition at time of disposition: Stable Decision to Admit order: No - Prescriptions Prescriptions: Methocarbamol [Robaxin -] 500 mg PO TID PRN #21 tablet PRN Reason: neck spasm Naproxen 500 mg PO BID PRN #20 tablet PRN Reason: neck pain - Referrals Referrals: Gaston Wheatley MD [Staff Physician] - - Patient Instructions Printed Discharge Instructions: DI for Torticollis Additional Instructions: [place] los medicamentos segn lo prescrito. Aplique compresas tibias en el tj 2-3 veces al da segn sea necesario para el dolor. Si no hay mejora en 4 atkinson , willian un seguimiento con el especialista en ortopedia referida para la col[place] vertebral. Print Language: TURKMEN - Post Discharge Activity
== END 2019-01-03 11:37 | disposition home or self-care (01) ==
LOC: JERFT 09:56
DX: M43.6 Torticollis (principal); R25.2 Cramp and spasm
CPT/HCPCS: 72050-TC-FY; 99282-25

== ENCOUNTER 2021-03-12 14:42 | Emergency (ER) | payer SELFPAY ==
[2021-03-12 15:05] VITALS: BMI 42.0
[2021-03-12 17:18] LABS: BASO % 0.6 % (0-2.0); EOS % 2.3 % (0-4.5); HEMOGLOBIN 14.5 GM/dL (10.7-15.3); LYMPH % 30.2 % (8-40); MCH 29.5 pg (25.7-33.7); MCHC 33.7 g/dl (32.0-36.0); MEAN CELL VOLUME 87.4 fl (80-96); MEAN PLT VOLUME 7.8 fl (7.5-11.1); MONO % 7.1 % (3.8-10.2); NEUT % 59.8 % (42.8-82.8); PLATELET COUNT 294 10^3/uL (134-434); RBC 4.92 M/mm3 (3.60-5.2); RDW 14.6 % (11.6-15.6); WHITE BLOOD COUNT 6.9 K/mm3 (4.0-10.0)
[2021-03-12 17:32] LABS: PH,URINE 6.5 (5.0-8.0); URINE APPEARANCE CLEAR; URINE BILIRUBIN NEGATIVE (NEGATIVE); URINE COLOR YELLOW; URINE GLUCOSE (UA) NEGATIVE (NEGATIVE); URINE KETONE NEGATIVE (NEGATIVE); URINE LEUK ESTERASE NEGATIVE (NEGATIVE); URINE NITRITE NEGATIVE (NEGATIVE); URINE PROTEIN NEGATIVE (NEGATIVE); URINE UROBILINOGEN 0.2 mg/dL (0.2-1.0)
[2021-03-12 17:36] LABS: CHLORIDE 105 mmol/L (98-107); SODIUM 141 mmol/L (136-145)
[2021-03-12 17:38] LABS: CALCIUM 9.8 mg/dL (8.5-10.1)
[2021-03-12 17:39] LABS: ALBUMIN 3.9 g/dl (3.4-5.0); ANION GAP 6 MMOL/L (8-16); BLOOD UREA NITROGEN 16.6 mg/dL (7-18); CO2 31 mmol/L (21-32); GLUCOSE,RANDOM 93 mg/dL (74-106)
[2021-03-12 17:42] LABS: CREATININE 0.8 mg/dL (0.55-1.3); SGOT/AST 27 U/L (15-37); SGPT/ALT 23 U/L (13-61)
[2021-03-12 17:43] LABS: BILIRUBIN,TOTAL 0.4 mg/dL (0.2-1); TOT PROT 7.8 g/dl (6.4-8.2)
[2021-03-12 17:45] LABS: ALK PHOS 74 U/L (45-117)
[2021-03-12 17:47] LABS: N-TERMINAL BNP 132.4 pg/ml (5-125)
[2021-03-12 18:25] VITALS: BP 148/68; PULSE 67; TEMP 98.6
[2021-03-12] MEDS ORDERED: ACETAMINOPHEN 500 MG TABLET (FP) PO ONE (19:35)
[2021-03-12] MEDS ORDERED: ACETAMINOPHEN 500 MG TABLET (FP) ONE (19:37)
== END 2021-03-12 19:40 | disposition home or self-care (01) ==
LOC: JER 14:42
DX: R06.02 Shortness of breath (principal); R51.9 Headache, unspecified; Z11.52 Encounter for screening for COVID-19
CPT/HCPCS: 36415; 71046-TC-FY; 80053; 81003; 83880; 84484; 85025; 87086; 93005; 93010; 99285-25; C9803; U0003; U0005

== ENCOUNTER 2022-06-21 23:13 | Emergency (ER) | payer OTHER ==
[2022-06-21 23:27] VITALS: BP 138/83; PULSE 81; RESP 20; TEMP 97.7; BMI 32.9
[2022-06-22 01:23] LABS: BASO % 0.4 % (0-2.0); EOS % 1.9 % (0-4.5); HEMATOCRIT 42.3 % (32.4-45.2); HEMOGLOBIN 13.8 GM/dL (10.7-15.3); LYMPH % 24.7 % (8-40); MCH 28.5 pg (25.7-33.7); MCHC 32.7 g/dl (32.0-36.0); MEAN CELL VOLUME 87.2 fl (80-96); MEAN PLT VOLUME 7.4 fl (7.5-11.1); MONO % 8.8 % (3.8-10.2); NEUT % 64.2 % (42.8-82.8); PLATELET COUNT 294 10^3/uL (134-434); RBC 4.85 M/mm3 (3.60-5.2); RDW 14.2 % (11.6-15.6); WHITE BLOOD COUNT 8.1 K/mm3 (4.0-10.0)
[2022-06-22] MEDS ORDERED: KETOROLAC TROMETHAMINE 15 MG/ML VIAL IVPUSH ONE (01:28)
[2022-06-22] MEDS ORDERED: KETOROLAC TROMETHAMINE 15 MG/ML VIAL ONE (01:30)
[2022-06-22 01:35] LABS: INR 1.06 (0.83-1.09); PROTHROMBIN TIME (PATIENT) 12.2 SEC (9.7-13.0)
[2022-06-22 01:38] LABS: ACTIVATED PTT 31.5 SECONDS (25.2-36.5)
[2022-06-22 01:50] LABS: ALBUMIN 3.3 g/dl (3.4-5.0); CALCIUM 9.2 mg/dL (8.5-10.1)
[2022-06-22 01:51] LABS: BLOOD UREA NITROGEN 27.4 mg/dL (7-18)
[2022-06-22 01:53] LABS: PH,URINE 5.5 (5.0-8.0); URINE APPEARANCE CLEAR; URINE BILIRUBIN NEGATIVE (NEGATIVE); URINE COLOR YELLOW; URINE GLUCOSE (UA) NEGATIVE (NEGATIVE); URINE KETONE NEGATIVE (NEGATIVE); URINE LEUK ESTERASE NEGATIVE (NEGATIVE); URINE NITRITE NEGATIVE (NEGATIVE); URINE PROTEIN NEGATIVE (NEGATIVE); URINE UROBILINOGEN 0.2 mg/dL (0.2-1.0)
[2022-06-22 01:55] LABS: BILIRUBIN,TOTAL 0.3 mg/dL (0.2-1); TOT PROT 7.2 g/dl (6.4-8.2)
[2022-06-22 02:08] LABS: CREATININE 0.7 mg/dL (0.55-1.3)
[2022-06-22] MEDS ORDERED: AZITHROMYCIN 250 MG TABLET PO ONE (04:59)
[2022-06-22] MEDS ORDERED: AZITHROMYCIN 250 MG TABLET ONE (05:03)
== END 2022-06-22 05:17 | disposition home or self-care (01) ==
LOC: JER 23:13
PROC: 3E033GC Introduction of Other Therapeutic Substance into Peripheral Vein, Percutaneous Approach (ICD-10-PCS; principal; 2022-06-21)
DX: R10.84 Generalized abdominal pain (principal); M54.50 Low back pain, unspecified
CPT/HCPCS: 36415; 71045-TC-FY; 74177-TC; 80053; 81003; 83690; 84484; 85025; 85610; 85730; 87086; 93005; 93010; 99285-25; Q9967

== ENCOUNTER 2022-12-06 10:27 | Emergency (ER) | payer OTHER ==
[2022-12-06 10:48] VITALS: BP 147/64; PULSE 75; RESP 16; TEMP 98.3; BMI 38.4
[2022-12-06] MEDS ORDERED: ACETAMINOPHEN 500 MG TABLET (FP) PO ONE (11:36)
[2022-12-06] MEDS ORDERED: KETOROLAC TROMETHAMINE 15 MG/ML VIAL IVPUSH ONE (11:39)
[2022-12-06 12:08] LABS: BASO % 0.2 % (0-2.0); EOS % 2.7 % (0-4.5); HEMATOCRIT 45.4 % (32.4-45.2); HEMOGLOBIN 15.3 GM/dL (10.7-15.3); LYMPH % 16.1 % (8-40); MCHC 33.7 g/dl (32.0-36.0); MEAN PLT VOLUME 7.5 fl (7.5-11.1); PLATELET COUNT 275 10^3/uL (134-434); RBC 5.28 M/mm3 (3.60-5.2); RDW 14.5 % (11.6-15.6); WHITE BLOOD COUNT 8.4 K/mm3 (4.0-10.0)
[2022-12-06 12:12] LABS: EPI CELLS 11 /uL (0-25.1); HYALINE CASTS 2 /uL (0-3.1); URINE APPEARANCE CLEAR; URINE BACTERIA 50 /uL (0-1359); URINE BILIRUBIN NEGATIVE (NEGATIVE); URINE COLOR YELLOW; URINE GLUCOSE (UA) NEGATIVE (NEGATIVE); URINE KETONE TRACE (NEGATIVE); URINE LEUK ESTERASE NEGATIVE (NEGATIVE); URINE NITRITE NEGATIVE (NEGATIVE); URINE PROTEIN 1+ (NEGATIVE); URINE RBC 19 /uL (0-23.9); URINE WBC 6 /uL (0-25.8)
[2022-12-06 12:25] LABS: POTASSIUM 3.7 mmol/L (3.5-5.1)
[2022-12-06 12:27] LABS: CALCIUM 10.3 mg/dL (8.5-10.1)
[2022-12-06 12:28] LABS: ALBUMIN 3.7 g/dl (3.4-5.0); BLOOD UREA NITROGEN 18.2 mg/dL (7-18)
[2022-12-06 12:31] LABS: CREATININE 0.6 mg/dL (0.55-1.3)
[2022-12-06 12:32] LABS: BILIRUBIN,TOTAL 0.6 mg/dL (0.2-1); TOT PROT 7.4 g/dl (6.4-8.2)
[2022-12-06] MEDS ORDERED: KETOROLAC TROMETHAMINE 15 MG/ML VIAL ONE (12:44)
[2022-12-06] MEDS ORDERED: ACETAMINOPHEN 325 MG TABLET (FP) ONE (12:44)
== END 2022-12-06 17:37 | disposition home or self-care (01) ==
LOC: JER 10:27
PROC: 3E0233Z Introduction of Anti-inflammatory into Muscle, Percutaneous Approach (ICD-10-PCS; principal; 2022-12-06)
DX: M25.552 Pain in left hip (principal)
CPT/HCPCS: 36415; 73502-TC-LT-FY; 73552-TC-LT-FY; 73562-TC-LT-FY; 80053; 81003; 85025; 87086; 93971-TC; 96372; 99285-25

== ENCOUNTER 2023-11-06 16:36 | Observation (INO) | payer OTHER ==
[2023-11-06 18:43] LABS: BASO % 0.4 % (0-2.0); EOS % 2.7 % (0-4.5); HEMATOCRIT 43.7 % (32.4-45.2); HEMOGLOBIN 14.6 GM/dL (10.7-15.3); LYMPH % 27.6 % (8-40); MCH 29.7 pg (25.7-33.7); MCHC 33.4 g/dl (32.0-36.0); MEAN CELL VOLUME 88.9 fl (80-96); MONO % 8.1 % (3.8-10.2); NEUT % 61.2 % (42.8-82.8); PLATELET COUNT 247 10^3/uL (134-434); RBC 4.91 M/mm3 (3.60-5.2); RDW 14.4 % (11.6-15.6); WHITE BLOOD COUNT 7.7 K/mm3 (4.0-10.0)
[2023-11-06 18:49] LABS: INR 0.88 (0.83-1.09)
[2023-11-06 18:52] LABS: ACTIVATED PTT 32.8 SECONDS (25.2-36.5)
[2023-11-06 18:56] LABS: URINE APPEARANCE CLEAR; URINE BILIRUBIN NEGATIVE (NEGATIVE); URINE COLOR YELLOW; URINE GLUCOSE (UA) NEGATIVE (NEGATIVE); URINE KETONE NEGATIVE (NEGATIVE); URINE LEUK ESTERASE NEGATIVE (NEGATIVE); URINE NITRITE NEGATIVE (NEGATIVE); URINE PROTEIN NEGATIVE (NEGATIVE)
[2023-11-06 18:58] LABS: POTASSIUM 3.8 mmol/L (3.5-5.1)
[2023-11-06 19:00] LABS: CALCIUM 9.3 mg/dL (8.5-10.1)
[2023-11-06 19:01] LABS: ALBUMIN 3.6 g/dl (3.4-5.0); BLOOD UREA NITROGEN 15.6 mg/dL (7-18)
[2023-11-06 19:04] LABS: CREATININE 0.5 mg/dL (0.55-1.3)
[2023-11-06 19:06] LABS: BILIRUBIN,TOTAL 0.3 mg/dL (0.2-1); TOT PROT 7.5 g/dl (6.4-8.2)
[2023-11-06] MEDS ORDERED: ACETAMINOPHEN INJECTION 100 ML IVPB ONE (20:38)
[2023-11-06] MEDS ORDERED: METOCLOPRAMIDE HCL INJECTION 10 MG/2 ML VIAL ONE (20:38)
[2023-11-06] MEDS: METOCLOPRAMIDE HCL INJECTION 10 MG/2 ML VIAL IVPUSH ONE (20:52)
[2023-11-06] MEDS: ACETAMINOPHEN 1000 MG/100 ML BAG IVPB ONE (20:52)
[2023-11-06] MEDS: SODIUM CHLORIDE 1,000 ML IV STA (20:53)
[2023-11-07 03:20] VITALS: BMI 37.4
[2023-11-07 07:29] LABS: HEMATOCRIT 41.7 % (32.4-45.2); HEMOGLOBIN 14.1 GM/dL (10.7-15.3); MCH 29.6 pg (25.7-33.7); MCHC 33.8 g/dl (32.0-36.0); MEAN CELL VOLUME 87.5 fl (80-96); MEAN PLT VOLUME 8.4 fl (7.5-11.1); PLATELET COUNT 245 10^3/uL (134-434); RBC 4.76 M/mm3 (3.60-5.2); RDW 14.4 % (11.6-15.6); WHITE BLOOD COUNT 7.1 K/mm3 (4.0-10.0)
[2023-11-07 07:52] LABS: POTASSIUM 3.2 mmol/L (3.5-5.1)
[2023-11-07 07:59] LABS: CALCIUM 8.9 mg/dL (8.5-10.1)
[2023-11-07 08:00] LABS: ALBUMIN 3.4 g/dl (3.4-5.0); BLOOD UREA NITROGEN 10.5 mg/dL (7-18)
[2023-11-07 08:01] LABS: MAGNESIUM 1.9 mg/dL (1.8-2.4)
[2023-11-07 08:03] LABS: CREATININE 0.5 mg/dL (0.55-1.3); PHOSPHOROUS 2.6 mg/dL (2.5-4.9)
[2023-11-07 08:04] LABS: BILIRUBIN,TOTAL 0.7 mg/dL (0.2-1); TOT PROT 6.8 g/dl (6.4-8.2)
[2023-11-07] MEDS: LOSARTAN POTASSIUM 50 MG TABLET PO SCH (10:00)
[2023-11-07] MEDS: ENOXAPARIN NA (PORCINE) 40 MG/0.4 ML DISP.SYRIN SQ SCH (10:00)
[2023-11-07] MEDS: POTASSIUM CHLORIDE ORAL LIQUID 20 MEQ/15 ML PO ONE (12:44)
[2023-11-07] MEDS: ASPIRIN 81 MG CHEWABLE TABLETS PO SCH (12:44)
[2023-11-07] MEDS: MEMANTINE HCL 5 MG TABLET (UD) PO SCH (21:01)
[2023-11-07 22:16] VITALS: RESP 20
[2023-11-07] MEDS: MELATONIN 1 MG TABLET PO ONE (23:12)
[2023-11-08 07:11] LABS: POTASSIUM 3.5 mmol/L (3.5-5.1)
[2023-11-08 07:14] LABS: CHOLESTEROL 232 mg/dL (50-200)
[2023-11-08 07:15] LABS: LDL CHOLESTEROL (ONLY SJRH) 138 mg/dL (5-100)
[2023-11-08 07:16] LABS: CALCIUM 9.4 mg/dL (8.5-10.1); HDL CHOLESTEROL 82 mg/dL (40-60)
[2023-11-08 07:20] LABS: CREATININE 0.6 mg/dL (0.55-1.3)
[2023-11-08 15:16] VITALS: BP 110/63; PULSE 78; TEMP 98.6
[2023-11-08] MEDS: amLODIPine BESYLATE 5 MG TABLET (FP) PO SCH (16:02)
== END 2023-11-08 15:30 | disposition home or self-care (01) ==
LOC: JER 16:36 → JERBED 11-07 00:20 → J4W 11-07 03:06
PROVIDERS: ADMIT Internal Medicine; ATTEND Internal Medicine
PROC: 3E033NZ Introduction of Analgesics, Hypnotics, Sedatives into Peripheral Vein, Percutaneous Approach (ICD-10-PCS; principal; 2023-11-07)
PROC: 3E023GC Introduction of Other Therapeutic Substance into Muscle, Percutaneous Approach (ICD-10-PCS; 2023-11-07)
PROC: 3E033GC Introduction of Other Therapeutic Substance into Peripheral Vein, Percutaneous Approach (ICD-10-PCS; 2023-11-07)
PROC: 3E0337Z Introduction of Electrolytic and Water Balance Substance into Peripheral Vein, Percutaneous Approach (ICD-10-PCS; 2023-11-07)
DX: G30.9 Alzheimer's disease, unspecified (principal); R07.9 Chest pain, unspecified; R06.02 Shortness of breath; E78.5 Hyperlipidemia, unspecified; I10 Essential (primary) hypertension; I83.90 Asymptomatic varicose veins of unspecified lower extremity
CPT/HCPCS: 0241U-QW; 36415; 70450-TC; 71045-TC-FY; 80048; 80053; 80061; 81003; 82607; 83605; 83735; 84100; 84484; 85025; 85027; 85610; 85730; 86780; 87086; 93005; 93010; 96361; 96372; 96374; 96375; 99285-25; G0378; J0131

== ENCOUNTER 2024-01-30 23:10 | Emergency (ER) | payer OTHER ==
[2024-01-30 23:35] VITALS: TEMP 98.5; BMI 36.6
[2024-01-31] MEDS ORDERED: LIDOCAINE 4% PATCH TP ONE (00:16)
[2024-01-31] MEDS ORDERED: ACETAMINOPHEN INJECTION 100 ML IVPB ONE (00:16)
[2024-01-31] MEDS ORDERED: ONDANSETRON 4 MG/2 ML VIAL ONE (00:17)
[2024-01-31] MEDS: ACETAMINOPHEN 1000 MG/100 ML BAG IVPB ONE (00:48)
[2024-01-31] MEDS: ONDANSETRON 4 MG/2 ML VIAL IVPUSH ONE (00:49)
[2024-01-31] MEDS: LIDOCAINE 4% PATCH TP ONE (00:49)
[2024-01-31 00:59] LABS: BASO % 0.7 % (0-2.0); EOS % 1.5 % (0-4.5); HEMATOCRIT 41.4 % (32.4-45.2); HEMOGLOBIN 13.9 GM/dL (10.7-15.3); LYMPH % 19.8 % (8-40); MCH 29.5 pg (25.7-33.7); MCHC 33.6 g/dl (32.0-36.0); MEAN CELL VOLUME 87.6 fl (80-96); MEAN PLT VOLUME 8.1 fl (7.5-11.1); PLATELET COUNT 259 10^3/uL (134-434); RBC 4.73 M/mm3 (3.60-5.2); RDW 14.5 % (11.6-15.6); WHITE BLOOD COUNT 9.2 K/mm3 (4.0-10.0)
[2024-01-31 01:12] LABS: INR 0.92 (0.83-1.09); PROTHROMBIN TIME (PATIENT) 10.6 SEC (9.7-13.0)
[2024-01-31 01:18] LABS: POTASSIUM 4.6 mmol/L (3.5-5.1)
[2024-01-31 01:20] LABS: CALCIUM 9.5 mg/dL (8.5-10.1)
[2024-01-31 01:21] LABS: ALBUMIN 3.8 g/dl (3.4-5.0); BLOOD UREA NITROGEN 18.9 mg/dL (7-18); MAGNESIUM 2.2 mg/dL (1.8-2.4)
[2024-01-31 01:24] LABS: CREATININE 0.7 mg/dL (0.55-1.3)
[2024-01-31 01:26] LABS: BILIRUBIN,TOTAL 0.5 mg/dL (0.2-1); TOT PROT 7.6 g/dl (6.4-8.2)
[2024-01-31 02:10] LABS: URINE APPEARANCE CLEAR; URINE BILIRUBIN NEGATIVE (NEGATIVE); URINE COLOR YELLOW; URINE GLUCOSE (UA) NEGATIVE (NEGATIVE); URINE KETONE NEGATIVE (NEGATIVE); URINE LEUK ESTERASE NEGATIVE (NEGATIVE); URINE NITRITE NEGATIVE (NEGATIVE); URINE PROTEIN NEGATIVE (NEGATIVE); URINE UROBILINOGEN 0.2 mg/dL (0.2-1.0)
[2024-01-31 02:56] VITALS: BP 158/89; PULSE 70; RESP 18
[2024-01-31] MEDS ORDERED: LIDOCAINE PATCH REMOVAL MC SCH (22:00)
== END 2024-01-31 02:56 | disposition home or self-care (01) ==
LOC: JER 23:10
PROC: 3E033NZ Introduction of Analgesics, Hypnotics, Sedatives into Peripheral Vein, Percutaneous Approach (ICD-10-PCS; principal; 2024-01-31)
PROC: 3E033GC Introduction of Other Therapeutic Substance into Peripheral Vein, Percutaneous Approach (ICD-10-PCS; 2024-01-31)
DX: R06.02 Shortness of breath (principal); M54.50 Low back pain, unspecified; J02.9 Acute pharyngitis, unspecified; R05.9 Cough, unspecified; Z20.822 Contact with and (suspected) exposure to COVID-19
CPT/HCPCS: 0241U-QW; 36415; 71045-TC-FY; 80053; 81003; 83735; 84484; 85025; 85610; 85730; 87086; 93005; 93010; 96374; 96375; 99285-25; J0131

== ENCOUNTER 2024-02-25 14:10 | Emergency (ER) | payer OTHER ==
[2024-02-25 14:30] VITALS: BP 117/71; PULSE 72; RESP 16; TEMP 98.2; BMI 47.5
[2024-02-25] MEDS ORDERED: LIDOCAINE HCL 1%, 10 MG/ML (20ML VIAL) ONE (15:19)
[2024-02-25] MEDS: LIDOCAINE HCL 1%, 10 MG/ML (50 mL VIAL) INF ONE (15:23)
[2024-02-25] MEDS ORDERED: DIPHTH,PERTUSS(ACELL),TET 0.5 ML DISP.SYRIN IM ONE (15:40)
[2024-02-25] MEDS ORDERED: BACITRACIN ZINC 15 GM TUBE TOPICAL OINTMENT ONE (15:40)
[2024-02-25] MEDS: DIPHTH,PERTUSS(ACELL),TET 0.5 ML DISP.SYRIN IM ONE (16:48)
[2024-02-25] MEDS: BACITRACIN 0.9 GM PACKET TP ONE (16:51)
== END 2024-02-25 16:52 | disposition home or self-care (01) ==
LOC: JERFT 14:10
PROC: 0YQTXZZ Repair Right 3rd Toe, External Approach (ICD-10-PCS; principal; 2024-02-25)
PROC: 3E0234Z Introduction of Serum, Toxoid and Vaccine into Muscle, Percutaneous Approach (ICD-10-PCS; 2024-02-25)
DX: S91.114A Laceration without foreign body of right lesser toe(s) without damage to nail, initial encounter (principal); W26.8XXA Contact with other sharp object(s), not elsewhere classified, initial encounter; Y93.01 Activity, walking, marching and hiking; Z23 Encounter for immunization
CPT/HCPCS: 12001-25; 73630-TC-RT-FY; 90471; 90715; 99283-25

== ENCOUNTER 2024-08-13 14:28 | Emergency (ER) | payer OTHER ==
[2024-08-13 14:33] VITALS: BP 109/67; PULSE 79; RESP 16; TEMP 97.9; BMI 35.5
[2024-08-13] MEDS ORDERED: FAMOTIDINE 20 MG/50 ML IVPB 20 MG/50 ML MG IVPB ONE (15:16)
[2024-08-13] MEDS ORDERED: ACETAMINOPHEN INJECTION 100 ML ONE (15:54)
[2024-08-13] MEDS ORDERED: MAG HYDROX/AL HYDROX/SIMETH 30 ML UNIT-DOSE CUP ONE (15:54)
[2024-08-13] MEDS: MAG HYDROX/AL HYDROX/SIMETH 30 ML UNIT-DOSE CUP PO ONE (16:32)
[2024-08-13] MEDS: SODIUM CHLORIDE 0.9% 500 ML INFUS.BAG IV ONE (16:32)
[2024-08-13] MEDS: ACETAMINOPHEN 1000 MG/100 ML BAG IVPB ONE (16:32)
[2024-08-13 16:37] LABS: BASO % 0.4 % (0-2.0); EOS % 1.6 % (0-4.5); HEMATOCRIT 37.9 % (32.4-45.2); HEMOGLOBIN 12.9 GM/dL (10.7-15.3); LYMPH % 22.1 % (8-40); MEAN CELL VOLUME 88.2 fl (80-96); MONO % 9.5 % (3.8-10.2); NEUT % 66.4 % (42.8-82.8); PLATELET COUNT 220 10^3/uL (134-434); WHITE BLOOD COUNT 6.3 K/mm3 (4.0-10.0)
[2024-08-13 16:38] LABS: PH,URINE 7.5 (5.0-8.0); URINE APPEARANCE CLEAR; URINE BILIRUBIN NEGATIVE (NEGATIVE); URINE COLOR YELLOW; URINE GLUCOSE (UA) NEGATIVE (NEGATIVE); URINE KETONE NEGATIVE (NEGATIVE); URINE LEUK ESTERASE NEGATIVE (NEGATIVE); URINE NITRITE NEGATIVE (NEGATIVE); URINE PROTEIN NEGATIVE (NEGATIVE); URINE UROBILINOGEN 0.2 mg/dL (0.2-1.0)
[2024-08-13 16:45] LABS: INR 1.04 (0.83-1.09); PROTHROMBIN TIME (PATIENT) 11.3 SEC (9.7-13.0)
[2024-08-13 16:48] LABS: ACTIVATED PTT 32.3 SECONDS (25.2-36.5)
[2024-08-13 17:39] LABS: POTASSIUM 3.8 mmol/L (3.5-5.1)
[2024-08-13 17:42] LABS: ALBUMIN 3.3 g/dl (3.4-5.0); BLOOD UREA NITROGEN 15.3 mg/dL (7-18); CALCIUM 8.8 mg/dL (8.5-10.1)
[2024-08-13 17:44] LABS: CREATININE 0.8 mg/dL (0.55-1.3)
[2024-08-13 17:47] LABS: BILIRUBIN,TOTAL 0.5 mg/dL (0.2-1); TOT PROT 6.4 g/dl (6.4-8.2)
[2024-08-13] MEDS: DEXAMETHASONE 4 MG TABLET (FP) PO ONE (20:50)
[2024-08-13] MEDS ORDERED: DEXAMETHASONE 4 MG TABLET (FP) ONE (20:54)
== END 2024-08-13 21:05 | disposition home or self-care (01) ==
LOC: JER 14:28
PROC: 3E033NZ Introduction of Analgesics, Hypnotics, Sedatives into Peripheral Vein, Percutaneous Approach (ICD-10-PCS; principal; 2024-08-13)
DX: R10.12 Left upper quadrant pain (principal)
CPT/HCPCS: 36415; 74177-TC; 80053; 81003; 83690; 83735; 84484; 85025; 85610; 85730; 87086; 93005; 93010; 96374; 99285-25; J0131; Q9967

== ENCOUNTER 2025-04-02 12:43 | Emergency (ER) | payer OTHER ==
[2025-04-02 12:52] VITALS: BMI 36.8
[2025-04-02 13:43] LABS: ABSOLUTE IMMATURE GRANULOCYTES 0.05 x10^3/uL (0.0-0.031); BASOPHILS # 0.03 x10^3/uL (0.01-0.08); EOSINOPHIL % 1.6 % (0.7-5.8); EOSINOPHILS # 0.10 x10^3/uL (0.04-0.36); MCHC 32.2 g/dl (32.2-35.5); MEAN CELL VOLUME 89.6 fl (79.4-94.8); MEAN PLT VOLUME 9.7 fl (9.4-12.3); MONOCYTE # 0.62 x10^3/uL (0.24-0.86); MONOCYTE % 9.7 % (4.7-12.5); RDW 14.3 % (12.4-16.4)
[2025-04-02 13:49] LABS: INR 1.01 (0.83-1.09); PROTHROMBIN TIME (PATIENT) 11.0 SEC (9.7-13.0)
[2025-04-02 13:52] LABS: ACTIVATED PTT 32.6 SECONDS (25.2-36.5)
[2025-04-02 14:08] LABS: GLUCOSE,RANDOM 84.0 mg/dL (74-106); TOT PROT 7.0 g/dl (6.4-8.2)
[2025-04-02 14:09] LABS: CO2 26.0 mmol/L (21-32)
[2025-04-02 14:11] LABS: ALK PHOS 65.0 U/L (40-150)
[2025-04-02 14:13] LABS: SGPT/ALT 15.0 U/L (0-55)
[2025-04-02 14:14] LABS: CREATININE 0.66 mg/dL (0.55-1.3); SGOT/AST 27.0 U/L (5-34)
[2025-04-02] MEDS ORDERED: ACETAMINOPHEN INJECTION 100 ML ONE (14:25)
[2025-04-02] MEDS: ACETAMINOPHEN 1000 MG/100 ML BAG IVPB ONE (14:31)
[2025-04-02 14:34] LABS: HCV DIAGNOSTIC IN-HOUSE W/RFLX NON-REACTIVE (NONREACTIVE)
[2025-04-02 14:35] LABS: HIV INTERPRETATION NEGATIVE (NEGATIVE)
[2025-04-02 14:36] LABS: URINE APPEARANCE CLEAR; URINE BILIRUBIN NEGATIVE (NEGATIVE); URINE COLOR YELLOW; URINE GLUCOSE (UA) NEGATIVE (NEGATIVE); URINE KETONE NEGATIVE (NEGATIVE); URINE LEUK ESTERASE NEGATIVE (NEGATIVE); URINE NITRITE NEGATIVE (NEGATIVE); URINE PROTEIN NEGATIVE (NEGATIVE); URINE UROBILINOGEN 0.2 mg/dL (0.2-1.0)
[2025-04-02 17:42] VITALS: TEMP 97.6
[2025-04-02] MEDS ORDERED: AZITHROMYCIN 500 MG TABLET ONE (20:51)
[2025-04-02] MEDS: AZITHROMYCIN 250 MG TABLET PO ONE (20:53)
[2025-04-02 21:19] VITALS: BP 154/79; PULSE 76; RESP 20
== END 2025-04-02 21:36 | disposition home or self-care (01) ==
LOC: JER 12:43
PROC: 3E033NZ Introduction of Analgesics, Hypnotics, Sedatives into Peripheral Vein, Percutaneous Approach (ICD-10-PCS; principal; 2025-04-02)
DX: J18.9 Pneumonia, unspecified organism (principal); R06.02 Shortness of breath; R05.9 Cough, unspecified; R07.81 Pleurodynia; R68.83 Chills (without fever); I10 Essential (primary) hypertension
CPT/HCPCS: 36415; 71046-TC-FY; 71275-TC; 80053; 81003; 84484; 85025; 85610; 85730; 86803; 86850; 86900; 86901; 87086; 87389; 87637-QW; 93005; 93010; 96374; 99285-25; Q9967